=== PATIENT | male | born 1960 | race Caucasian/White ===

== ENCOUNTER 2020-06-03 10:53 | Inpatient (IN) | payer MEDICARE, OTHER ==
[~2020-06-03] VITALS: Ht 170.2 cm; Wt 104.3 kg
--- NOTE | 2020-06-03 11:05 | NUR ---
BIB SELF C/O WEAKNESS AND STATES VADIM HE LEFT [facility] AMA YESRTERDAY. PT ALSO STATES HE HAD DIARRHEA THIS AM. PATIENT A/OX4, BREATHING EVEN AND UNLABORED, NO SOB NOTED, NEEDS ATTENDED, KEPT COMFORTABLE. ATTACHED TO THE USER EXPERIENCE ARCHITECT.
[2020-06-03] MEDS ORDERED: IV NS 0.9% 500 ML BAG IV ONE (11:30)
[2020-06-03] MEDS ORDERED: TAMS-12 PO (11:43)
[2020-06-03] MEDS ORDERED: METF-442 PO (11:43)
[2020-06-03] MEDS ORDERED: ATOR80TA PO (11:43)
[2020-06-03] MEDS ORDERED: HYDR12.55 PO (11:43)
[2020-06-03] MEDS ORDERED: GABA-532 PO (11:43)
[2020-06-03] MEDS ORDERED: FLUT16SP NS (11:43)
--- NOTE | 2020-06-03 11:48 | NUR ---
PATIENT REFUSED CXR, EXPLAINED RISKS AND BENEFITS. DR. BURNHAM MADE AWARE.
[2020-06-03 11:59] LABS: APPEARANCE,URINE CLEAR (CLEAR); BILIRUBIN,URINE MODERATE (NEGATIVE); BLOOD, URINE TRACE Ery/uL (NEGATIVE); COLOR,URINE YELLOW (YELLOW); KETONES,URINE 40 (NEGATIVE); LEUKOCYTE ESTERASE ,URINE NEGATIVE (NEGATIVE); NITRITE, URINE NEGATIVE (NEGATIVE); PROTEIN,URINE 100 mg/dl (NEGATIVE); UGLUCOSE 500 MG/DL mg/dL (NEGATIVE); UROBILINOGEN,URINE 0.2 EU/dL (0.2)
[2020-06-03 12:01] LABS: BACTERIA,URINE Rare /HPF (None Seen); HYALINE CASTS, URINE Few /LPF (None Seen); SQUAMOUS EPITHELIAL CELL,UR Rare /HPF (None Seen); WBC,URINE 0-2 /HPF (0-3)
[2020-06-03 12:05] LABS: BASOPHILS % (AUTO) 0.5 % (0.0-2.0); EOSINOPHILS % (AUTO) 1.5 % (0.0-6.0); HEMATOCRIT 43 % (39-51); HEMOGLOBIN 14.9 g/dL (13.5-17.5); LYMPHOCYTES # (AUTO) 0.8 /CMM (0.8-4.8); LYMPHOCYTES % (AUTO) 7.9 % (20.0-44.0); MEAN CORPUSCULAR HGB CONC 35 g/dl (31.0-36.0); MEAN CORPUSCULAR VOLUME 87 fL (80-96); MONOCYTES # (AUTO) 0.8 /CMM (0.1-1.30); MONOCYTES % (AUTO) 7.2 % (2.0-12.0); NEUTROPHILS # (AUTO) 8.9 /CMM (1.8-8.9); NEUTROPHILS % (AUTO) 82.9 % (43.0-81.0); PLATELET COUNT (AUTO) 186 /CMM (150-450); RED BLOOD CELL COUNT(AUTO) 4.98 MIL/uL (4.5-6.0); WHITE BLOOD COUNT (AUTO) 10.7 K/uL (4.3-11.0)
[2020-06-03 12:08] LABS: CALCIUM, SERUM 9.1 mg/dL (8.5-10.1); CREATININE 0.8 mg/dL (0.6-1.3)
[2020-06-03 12:21] LABS: ALBUMIN 2.7 g/dL (3.4-5.0); BILIRUBIN,TOTAL 4.2 mg/dL (0.2-1.0); TOTAL PROTEIN, SERUM 7.1 g/dL (6.4-8.2)
[2020-06-03 13:02] LABS: BILIRUBIN,DIRECT 2.6 mg/dL (0.0-0.2)
--- NOTE | 2020-06-03 13:07 | NUR ---
received a call from the lab regarding covid result "negative"
--- NOTE | 2020-06-03 13:48 | NUR ---
CALLED EPIC PANEL FOR ADMISSION
--- NOTE | 2020-06-03 14:08 | NUR ---
PATIENT SEEN AND EVALUATED BY DR. LESTER NEELY.
--- NOTE | 2020-06-03 14:32 | NUR ---
BED ASSIGNED= 309-1
--- NOTE | 2020-06-03 14:41 | NUR ---
REPORT GIVEN TO RED WEI FOR QUENTIN
--- NOTE | 2020-06-03 14:49 | NUR ---
PATIENT TRANSFERRED TO ROOM 309 VIA WHEELCHAIR. PATIENT IN STABLE CONDITION. NO DISTRESS NOTED.
[2020-06-03] MEDS ORDERED: ZOLPIDEM TARTRATE 5 MG TABLET PO PRN (15:00)
[2020-06-03] MEDS ORDERED: Z GUARD REMEDY 2 OZ OINT TP PRN (15:00)
[2020-06-03] MEDS ORDERED: ACETAMINOPHEN 325 MG TABLET PO PRN (15:00)
[2020-06-03] MEDS ORDERED: MAGNESIUM HYDROXIDE 30 ML UDC PO PRN (15:00)
[2020-06-03] MEDS ORDERED: HYDROCODONE/APAP 5/325MG TABLET PO PRN (15:00)
[2020-06-03] MEDS ORDERED: ONDANSETRON HCL/PF 4 MG/2 ML VIAL IVP PRN (15:00)
[2020-06-03] MEDS ORDERED: MAG HYDROX/AL HYDROX/SIMETH 30 ML UDC PO PRN (15:00)
[2020-06-03 15:47] VITALS: BP 102/51
--- NOTE | 2020-06-03 15:55 | NUR ---
RN ADMITTING NOTES PATIENT ARRIVED ON UNIT 1500. AMBULATED FROM [facility] TO BED. PATIENT IS A/OX4. SHOWING NOW SIGNS OF ACUTE DISTRESS OR SOB. STABLE ON ROOM AIR. PATIENT DENIES PAIN AND DENIES N/V/D AT THIS TIME. IV LINE ON RIGHT HAND #18G. CLEAN AND INTACT, FLUSHING WELL. SKIN ASSESSED, SKIN REMAINS INTACT. BED LOCKED AND IN LOWEST POSITION. SIDERAILS X2 UP. FALL SAFETY AND ASPIRATIONS PRECAUTIONS ENFORCED. WILL CONTINUE WITH ADMISSION PROCESS.
[2020-06-03 16:00] VITALS: BP 162/100
[2020-06-03] MEDS ORDERED: DEXTROSE 50%-WATER 50 ML DISP.SYRIN IV PRN (16:00)
[2020-06-03 17:00] VITALS: BP 150/98
[2020-06-03] MEDS: IV D5/0.45 NACL 1,000 ML IV PRN (17:00)
[2020-06-03] MEDS: INSULIN REGULAR, HUMAN 100 UNIT/ML 3 ML VIAL SQ PRN (17:58)
[2020-06-03] MEDS: BLOOD SUGAR DIAGNOSTIC 1 EACH STRIP IN SCH ×2 (17:58→22:00)
--- NOTE | 2020-06-03 17:58 | NUR ---
RN NOTE Patient refused insulin coverage.
--- NOTE | 2020-06-03 18:38 | NUR ---
RN CLOSING NOTE Patient is resting in bed, A/O x4, showing no signs of acute distress or SOB, stable on RA. IV line in the right hand #18g is clean and intact running D51/2 NS@75mls/hour. Patient is ambulatory with BRP, independent with care. Per Dr. Flores, patient is scheduled for ERCP tomorrow afternoon, NPO after midnight per MD, consent is signed. All patient needs met, all due medications given, patient kept clean and dry throughout shift. Bed is in lowest position, side rails x3 in upright position, call light is within reach, fall safety and aspiration precautions enforced. Will endorse to mini shifter for QUENTIN.
[2020-06-03 20:31] VITALS: BP 157/97
--- NOTE | 2020-06-03 20:34 | NUR ---
MS/TELE/RN DURING INITIAL SHIFT ASSESSMENT, PATIENT WAS IN BED AWAKE, ALERT AND ORIENTED, COMFORTABLE, NO C/O PAIN, NO DISTRESS NOTED, PLAN OF CARE DISCUSSED, VERBALIZED UNDERSTANDING AND AGREEMENT TO THE PLAN OF CARE, PLACED CALL LIGHT IN REACH, WILL MONITOR.
--- NOTE | 2020-06-04 00:21 | NUR ---
MS/TELE/RN PATIENT REFUSED THE ACCU CHECK AT 2200 DESPITE EDUCATION ON DIABETES.
--- NOTE | 2020-06-04 00:47 | NUR ---
MS/TELE/RN NPO STATUS ORDERED WAS STARTED, PATIENT IS STILL AWAKE AND AWARE. WILL CONTINUE TO MONITOR.
--- NOTE | 2020-06-04 06:01 | NUR ---
MS/TELE/RN PATIENT IS STILL SLEEPING AT THIS TIME, APPEAR COMFORTABLE, NO SIGNS OF DISTRESS NOTED, CALL LIGHT IN REACH, ALL NEEDS ATTENDED AT THIS TIME, WILL CONTINUE TO MONITOR.
[2020-06-04 06:27] LABS: BASOPHILS % (AUTO) 0.4 % (0.0-2.0); EOSINOPHILS % (AUTO) 4.1 % (0.0-6.0); HEMATOCRIT 41 % (39-51); HEMOGLOBIN 14.3 g/dL (13.5-17.5); LYMPHOCYTES # (AUTO) 1.1 /CMM (0.8-4.8); LYMPHOCYTES % (AUTO) 13.3 % (20.0-44.0); MEAN CORPUSCULAR HGB CONC 35 g/dl (31.0-36.0); MEAN CORPUSCULAR VOLUME 86 fL (80-96); MONOCYTES # (AUTO) 0.9 /CMM (0.1-1.30); MONOCYTES % (AUTO) 11.2 % (2.0-12.0); PLATELET COUNT (AUTO) 214 /CMM (150-450); RED BLOOD CELL COUNT(AUTO) 4.81 MIL/uL (4.5-6.0); WHITE BLOOD COUNT (AUTO) 8.4 K/uL (4.3-11.0)
[2020-06-04 06:42] LABS: ALANINE AMINOTRANSFERASE 147 U/L (12-78); ALBUMIN 2.6 g/dL (3.4-5.0); ALKALINE PHOSPHATASE 264 U/L (46-116); ASPARTATE AMINOTRANSFERASE 91 U/L (15-37); BILIRUBIN,TOTAL 3.2 mg/dL (0.2-1.0); CALCIUM, SERUM 8.8 mg/dL (8.5-10.1); CARBON DIOXIDE 24 mmol/L (21-32); CHLORIDE 101 mmol/L (98-107); CREATININE 0.8 mg/dL (0.6-1.3); GLUCOSE 256 mg/dL (74-106); MAGNESIUM 2.1 mg/dL (1.8-2.4); PHOSPHORUS 1.8 mg/dL (2.5-4.9); POTASSIUM 3.6 mmol/L (3.5-5.1); SODIUM SERUM 135 mmol/L (136-145); TOTAL PROTEIN, SERUM 6.9 g/dL (6.4-8.2); UREA NITROGEN, BLOOD 8 mg/dL (7-18)
[2020-06-04 06:45] LABS: CHOLESTEROL 184 mg/dL (<200); LDL 127 mg/dL (0-99); THYROID STIMULATING HORMONE 1.965 uIU/mL (0.358-3.74); TRIGLYCERIDES 228 mg/dL (30-150)
[2020-06-04] MEDS: IV D5/0.45 NACL 1,000 ML IV PRN (06:47)
[2020-06-04] MEDS: BLOOD SUGAR DIAGNOSTIC 1 EACH STRIP IN SCH ×4 (06:48→21:17)
--- NOTE | 2020-06-04 06:48 | NUR ---
MS/TELE/RN ACCU CHECK BLOOD SUGAR 257, PATIENT IS NPO SINCE MIDNIGHT FOR ERCP, DID NO COVER WITH INSULIN.
[2020-06-04 07:28] LABS: HDL CHOLESTEROL < 10 mg/dL (40-60)
--- NOTE | 2020-06-04 07:38 | NUR ---
MS RN OPENING NOTES RECEIVED PATIENT RESTING IN BED, A/O X4, AMBULATORY, WITH BRP, IV TO RT HAND #18 G, RUNNING D5 1/2 NS @75 ML/HR. PT IS NPO, ORDERS FOR ERCP, CONSENT SIGNED AND ON FILE. SKIN INTACT. ON RA, NO C/O SOB, NO ACUTE RESPIRATORY DISTRESS NOTED. NO C/O PAIN AT THIS TIME. BED AT LOWEST POSITION LOCKED WITH SIDE RAILS UP X 2. CALL LIGHT WITHIN REACH. WILL CONTINUE TO MONITOR PT THROUGHOUT SHIFT.
[2020-06-04 08:00] VITALS: BP 147/87
[2020-06-04] MEDS: PANTOPRAZOLE 40 MG VIAL IV SCH (08:48)
--- NOTE | 2020-06-04 09:15 | NUR ---
ERIBERTO MS NOTES PT C/O PAIN TO RT IV SITE. NOTED WITH SOME SWELLING. NEW IV STARTED ON LT HAND #20G, FLUSHING WELL AND PATENT. KEPT SL Addendum: 06/04/20 at 0947 by HERNANDO THOMAS RN REMOVED IV ON RT HAND.
--- NOTE | 2020-06-04 10:45 | NUR ---
MS RN NOTES PT TRANSPORTED FOR ERCP VIA GURNEY IN STABLE CONDITION, ON RA, IV TO LT HAND PATENT AND INTACT. CONSENT SIGNED AND ON FILE.
[2020-06-04] MEDS ORDERED: INDOMETHACIN 50 MG SUPP.RECT ONE (11:21)
[2020-06-04] MEDS ORDERED: IOHEXOL 240MG/ML 100 ML IV ONE (11:21)
[2020-06-04 12:52] LABS: BAND % (MANUAL) 1 % (0.0-5.0); MONOCYTES % (MANUAL) 13 % (0-11.0); NEUTROPHILS % (MANUAL) 66 (42-76)
[2020-06-04 12:53] LABS: MYELOCYTES % 1 % (0-0)
[2020-06-04 12:56] LABS: EOSINOPHILS % (MANUAL) 6 % (0-4); LYMPHOCYTES % (MANUAL) 13 % (16-48)
[2020-06-04] MEDS ORDERED: NEUTRA PHOS 1 POWD.PACKET PO ONE (13:30)
[2020-06-04] MEDS ORDERED: hydrALAZINE HCL IV 20 MG VIAL ONE (13:32)
--- NOTE | 2020-06-04 14:00 | NUR ---
MS RN NOTES PT RETURNED TO UNIT; MS3, ROOM 309-1 FROM ERCP PROCEDURE IN STABLE CONDITION. ON RA, WITH NO C/O PAIN, PT C/O OF FEELING GAS. IV TO LT HAND PATENT AND INTACT. PT RESTING COMFORTABLY IN BED WITH. BED AT LOWEST POSITION AND LOCKED, WITH SIDE RAILS UPX2 AND CALL LIGHT WITHIN REACH. PER MD ORDERS PT MAY RESUME CLEAR LIQUID DIET. ORDER PLACED. ALL SAFETY MEASURE IN PLACE. WILL CONTINUE TO MONITOR PT THROUGH OUT SHIFT.
--- NOTE | 2020-06-04 14:56 | NUR ---
MS RN NOTES BS CHECKED WITH READING @ 250. PT HAS BEEN NPO D/T ERCP PROCEDURE AND AND RETURNED TO FLOOR AT 1400. PT IS TO RESUME CLEAR LIQUID DIET. WILL HOLD INSULIN SLIDING SCALE DOSE. WILL RECHECK WITH DINNER AND RESUME SLIDING SCALE COVERAGE @ WITH DINER.
[2020-06-04 16:00] VITALS: BP 156/90
[2020-06-04] MEDS: INSULIN REGULAR, HUMAN 100 UNIT/ML 3 ML VIAL SQ PRN ×2 (17:11→21:22)
--- NOTE | 2020-06-04 18:01 | NUR ---
MS RN CLOSING NOTES PATIENT RESTING IN BED, A/O X4, STABLE, AMBULATORY WITH STABLE GAIT. PATIENT WITH BRP, ON RA, NO C/O SOB, NO ACUTE RESPIRATORY DISTRESS NOTED. IV TO RT HAND #18 G, PATENT AND INTACT; RUNNING D5 1/2 NS @75 ML/HR. PT IS ON CLEAR LIQUID DIET. SKIN INTACT. NO C/O PAIN AT THIS TIME. BED AT LOWEST POSITION LOCKED WITH SIDE RAILS UP X 2. CALL LIGHT WITHIN REACH. WILL ENDORSE TO BLOW MACHINE TENDER STARCH SPRAYING.
--- NOTE | 2020-06-04 19:42 | NUR ---
MS RN OPEN NOTES PATIENT IS LAYING IN BED. A/O X4. ON RA, NO SOB/ ACUTE RESPIRATORY DISTRESS NOTED. PT IS ABLE TO AMBULATE. BED IS IN LOWEST LOCKED POSITION WITH SIDE RAILS UP X2, SEMI FOWLERS. CALL LIGHT IS WITHIN REACH. WILL CONTINUE TO MONITOR.
[2020-06-04 20:00] VITALS: BP 157/97
--- NOTE | 2020-06-05 03:11 | NUR ---
MS RN NOTES PT STATED HE DOES NOT WANT A NEW IV INSERTED. DISCUSSED WITH HIM THE BENEFITS OF HAVING AN IV ESPECIALLY SINCE HE IS ON FLUIDS ( D51/2 NS @ 75MLS/HR) HOWEVER PT STATED HE DOES NOT WANT A NEW ONE.
[2020-06-05] MEDS: BLOOD SUGAR DIAGNOSTIC 1 EACH STRIP IN SCH ×2 (06:37→11:55)
--- NOTE | 2020-06-05 06:39 | NUR ---
MS RN NOTES PT REFUSES INSULIN. BLOOD GLUCOSE WAS 248. EXPLAINED TO HIM THAT HE NEEDS IT TO LOWER HIS BLOOD SUGAR HOWEVER HE KEEPS REFUSING. WILL CONTINUE TO MONITOR PT.
--- NOTE | 2020-06-05 06:42 | NUR ---
MS RN CLOSE NOTES PATIENT IS LAYING IN BED. A/O X4. ON RA, NO SOB/ ACUTE RESPIRATORY DISTRESS NOTED. PT STILL HAS NO IV ACCESS, PT KEEPS REFUSING. KEPT ON CLEAR LIQUIDS THROUGHOUT THE NIGHT. PT ABLE TO AMBULATE. BED IS IN LOWEST LOCKED POSITION WITH SIDE RAILS UP X2, SEMI FOWLERS. CALL LIGHT IS WITHIN REACH. WILL ENDORSE TO AM NURSE.
--- NOTE | 2020-06-05 07:35 | NUR ---
MS RN OPENING NOTES RECEIVED PATIENT RESTING IN BED, A/O X4. ON RA, NO C/O SOB; NO ACUTE RESPIRATORY DISTRESS NOTED. NO C/O PAIN. PT STATES HE WANTS TO GO HOME, PT IS AMBULATORY WITH BRP. NO IV ACCESS AND REFUSING TO HAVE IV PLACED FOR NOW. PATIENT ON CLEAR LIQUIDS. BED IS IN LOWEST LOCKED POSITION WITH SIDE RAILS UP X2 AND CALL LIGHT IS WITHIN REACH. WILL CONTINUE OT MONITOR PATIENT THROUGHOUT SHIFT.
[2020-06-05 08:00] VITALS: BP 172/96
[2020-06-05] MEDS: PANTOPRAZOLE 40 MG VIAL IV SCH (09:00)
[2020-06-05] MEDS ORDERED: PANTOPRAZOLE 40 MG TABLET.DR PO SCH (09:00)
[2020-06-05] MEDS ORDERED: HYDROCHLOROTHIAZIDE 25 MG TABLET PO SCH (11:00)
[2020-06-05] MEDS: INSULIN REGULAR, HUMAN 100 UNIT/ML 3 ML VIAL SQ PRN (11:59)
[2020-06-05 13:00] VITALS: BP 164/86
--- NOTE | 2020-06-05 13:09 | NUR ---
MS MEDICARE NURSE NOTE RECEIVED CONFIRMATION OF DISCHARGE FROM [facility]. UPDATED DISCHARGE DOCUMENTS. REVIEWED WITH PATIENT. BELONGINGS CHECKED VITALS TAKEN. BP: 164/86 HR: 76 TEMP: 98.1; CONTACTED DR. BATISTA TO NOTIFY OF BP READING. PER DR. BATISTA PT OK AND STABLE FOR DISCHARGE WITH NO NEW ORDERS. PT REFUSED BOTH FLU AND PENUMO VACCINES. SKIN CHECK DONE AND IS INTACT, NO IV IN PLACE. PT AWAITING RIDE.
--- NOTE | 2020-06-05 14:00 | NUR ---
MS RN NOTES PT ID REMOVED, ALL BELONGINGS WITH PATIENT. PATIENT IS AMBULATORY WITH STABLE GAIT. ACCOMPANIED PT TO [facility]. PT LEFT IN STABLE CONDITION VIA PRIVATE CAR WITH A FRIEND.
== END 2020-06-05 14:00 | disposition home or self-care (01) | DRG 438 ==
LOC: ER 11:00 → MED 14:36
PROC: 0F7D8DZ Dilation of Pancreatic Duct with Intraluminal Device, Via Natural or Artificial Opening Endoscopic (ICD-10-PCS; principal; 2020-06-04)
PROC: BF11YZZ Fluoroscopy of Biliary and Pancreatic Ducts using Other Contrast (ICD-10-PCS; 2020-06-04)
DX: K86.89 Other specified diseases of pancreas (principal); K83.1 Obstruction of bile duct; E87.1 Hypo-osmolality and hyponatremia; E44.0 Moderate protein-calorie malnutrition; R17 Unspecified jaundice; E88.09 Other disorders of plasma-protein metabolism, not elsewhere classified; I10 Essential (primary) hypertension; E78.5 Hyperlipidemia, unspecified; N40.0 Benign prostatic hyperplasia without lower urinary tract symptoms; Z68.36 Body mass index [BMI] 36.0-36.9, adult; I48.91 Unspecified atrial fibrillation; E11.9 Type 2 diabetes mellitus without complications; Z79.84 Long term (current) use of oral hypoglycemic drugs
CPT/HCPCS: 36415; 74018; 80048-TC; 80053-TC; 80061-TC; 80076-TC; 81000-TC; 82962-TC; 83690-TC; 83735-TC; 84100-TC; 84443-TC; 85025-TC; 85730-TC; 87081-TC; C1769; C2625; C9113; C9803; G0378; J0330; J0360; J0690; J1815; J2405; J2704; J3490; J7040; J7120; Q9966